=== PATIENT | female | born 1945 ===

== ENCOUNTER 2018-06-07 12:39 | Emergency (ER) | payer MEDICARE ==
[~2018-06-07] VITALS: Ht 162.6 cm; Wt 72.0 kg
[~2018-06-07 12:39] MED LIST: ASPI-515 PO; BP MED PO; HCTZ PO; [UNRECOGNIZED DRUG - CODE] PO
[2018-06-07 13:28] LABS: BASOPHILS # (AUTO) 0.02 x10^3/uL (0-0.1); BASOPHILS % (AUTO) 0 % (0-1); EOSINOPHILS # (AUTO) 0.08 x10^3/uL (0-0.4); EOSINOPHILS % (AUTO) 1 % (1-7); LYMPHOCYTES % (AUTO) 29 % (22-44); MD NO; MEAN CORPUSCULAR HEMOGLOBIN 31.2 pg (27.0-34.8); MEAN CORPUSCULAR HGB CONC 33.8 g/dL (32.4-35.8); MEAN CORPUSCULAR VOLUME 92.2 fL (80-100); MEAN PLATELET VOLUME 8.8 fL (7.4-10.4); MONOCYTES # (AUTO) 0.43 x10^3/uL (0.2-0.8); MONOCYTES % (AUTO) 7 % (2-9); NEUTROPHILS # (AUTO) 3.96 x10^3/uL (1.8-6.8); NEUTROPHILS % (AUTO) 63 % (42-75); PLATELET COUNT 222 x10^3/uL (130-400); RED BLOOD COUNT 4.77 x10^6/uL (3.82-5.3); RED CELL DISTRIBUTION WIDTH 13.4 % (9.6-15.2)
[2018-06-07 13:41] LABS: ALBUMIN 4.3 g/dL (3.4-5.0); ANION GAP 8 mmol/L (5-15); CHLORIDE 104 mmol/L (98-107)
[2018-06-07 13:44] LABS: TROPONIN I < 0.015 ng/mL (0.000-0.045)
[2018-06-07] MEDS ORDERED: ONDANSETRON 2MG/ML, 2ML IVPush ONE (15:00)
[2018-06-07] MEDS ORDERED: MORPHINE SULFATE 4 MG/ML, 1ML IVPush PRN (15:00)
[2018-06-07 15:11] LABS: CULTURE INDICATED? NO; MICROSCOPIC NOT IND
[2018-06-07] MEDS ORDERED: ONDANSETRON 2MG/ML, 2ML ONE (15:11)
[2018-06-07] MEDS ORDERED: MORPHINE SULFATE 4 MG/ML, 1ML ONE (15:12)
[2018-06-07] MEDS ORDERED: ONDANSETRON ODT 4 MG PO ONE (15:25)
[2018-06-07] MEDS ORDERED: ONDANSETRON ODT 4 MG ONE (15:30)
[2018-06-07] MEDS ORDERED: HYDROmorphone 2 MG/ML, 1ML ONE (15:30)
[2018-06-07] MEDS ORDERED: HYDROmorphone 2 MG/ML, 1ML IM PRN (15:30)
[2018-06-07] MEDS ORDERED: ACETAMINOPHEN 325 MG TABLET ONE (15:34)
[2018-06-07 15:44] VITALS: BP 141/52
[2018-06-07] MEDS ORDERED: ACETAMINOPHEN 325 MG TABLET PO ONE (16:00)
== END 2018-06-07 15:57 | disposition home or self-care (01) ==
LOC: ED 14:30
DX: I67.4 Hypertensive encephalopathy (principal); I10 Essential (primary) hypertension; E78.00 Pure hypercholesterolemia, unspecified; Z87.891 Personal history of nicotine dependence
CPT/HCPCS: 36415; 70450; 80048; 81003; 82040; 84484; 85025; 93005; 99284; Q0162; J2405